=== PATIENT | male | born 1940 | race Caucasian/White ===

== ENCOUNTER 2024-11-25 08:38 | Emergency (ER) | payer MEDICARE ==
[~2024-11-25] VITALS: Ht 177.8 cm; Wt 74.4 kg
[2024-11-25 08:42] VITALS: BP 112/90; PULSE 77; RESP 16; TEMP 98; O2SAT 100
== END 2024-11-25 09:56 | disposition home or self-care (01) ==
LOC: ER 08:41
DX: H92.01 Otalgia, right ear (principal); R51.9 Headache, unspecified; W18.30XA Fall on same level, unspecified, initial encounter; Y93.89 Activity, other specified; Y92.89 Other specified places as the place of occurrence of the external cause; Y99.8 Other external cause status
CPT/HCPCS: 99284